=== PATIENT | male | born 1955 | race Caucasian/White ===

== ENCOUNTER 2023-05-19 15:46 | Inpatient (IN) ==
--- NOTE | 2023-05-19 15:59 | ED Triage Note ---
Date of Service May 19, 2023 History of Present Illness This patient was briefly evaluated while in triage. An abbreviated physical exam was performed. This patient is a 68-year-old Male who presents to the ED for evaluation of flank pain on right side with hx of kidney stones hx of the same seeing urology at the [facility] Physical Exam GENERAL: NAD CARDIOVASCULAR: RRR RESPIRATORY: CTA ABDOMEN: BS x 4. Nontender to palpation. Initial orders for labs and / or imaging were placed and patient was placed in the waiting area until a bed is available. Please see further documentation for the full ED course.
[2023-05-19] MEDS ORDERED: SODIUM CHLORIDE 0.9% 1,000 ML IV SCH (16:01)
[2023-05-19] MEDS ORDERED: ONDANSETRON INJ 2 MG/ML 2 ML VIAL IV STA (16:01)
[2023-05-19] MEDS ORDERED: KETOROLAC TROMETHAMINE 15 MG/ML VIAL IV ONE (16:01)
[2023-05-19 16:39] LABS: Appearance Urine Clear (Clear); Bacteria Urine Automated Negative (Negative); Blood Urine Negative (Negative); Color Urine Dark Yellow; Epithelial Cell Urine Auto >30 /lpf (0-5); Glucose Urine UA Negative (Negative); Ketones Urine Trace (Negative); Leukocyte Esterase Urine Negative (Negative); Nitrite Urine Positive (Negative); Protein Urine Trace (Negative); Urobilinogen Urine Negative (Negative); pH Urine 5.5 (4.5-7.5)
[2023-05-19 16:40] LABS: Bilirubin Urine 1+ (Negative)
[2023-05-19 16:59] LABS: Cast Urine Automated >30 /lpf (0-5)
[2023-05-19 17:16] LABS: Basophils # (auto) 0.05 K/uL (0.00-0.20); Basophils % (auto) 0.5 %; Eosinophils # (auto) 0.04 K/uL (0.00-0.50); Eosinophils % (auto) 0.4 %; Hematocrit (blood only) 43.5 % (42.0-52.0); Hemoglobin 15.4 g/dl (14.0-18.0); Immature Granulocytes # (auto) 0.03 K/uL (0.01-0.20); Immature Granulocytes % (auto) 0.3 %; Lymphocytes # (auto) 0.96 K/uL (1.20-3.40); Lymphocytes % (auto) 9.1 %; Mean Corpuscular Hemoglobin 33.2 pg (25.0-34.0); Mean Corpuscular Hgb Conc 35.4 g/dL (32.0-36.0); Mean Corpuscular Volume 93.8 fL (80.0-100.0); Mean Platelet Volume 10.6 fL (9.4-12.4); Monocytes # (auto) 0.74 K/uL (0.11-0.59); Neutrophils # (auto) 8.77 K/uL (1.40-6.50); Neutrophils % (auto) 82.7 %; Platelet Count 210 K/uL (130-400); RDW Coefficient of Variation 13.2 % (11.5-14.5); RDW Standard Deviation 45.2 fL (36.4-46.3); Red Blood Count 4.64 M/uL (4.70-6.10); White Blood Count 10.59 K/ul (4.8-10.8)
[2023-05-19 17:35] LABS: Albumin Globulin Ratio 1.7 (0.9-2); Albumin Level 4.3 gm/dl (3.4-5.0); BUN Creatinine Ratio 14.4 (10-20); Bilirubin,Total 0.7 mg/dl (0.2-1.0); Calcium 8.9 mg/dl (8.6-10.3); Creatinine Clr Calc Pharmacy 68.4 ml/min; Est GFR (African American) 73.6 ml/min; Est GFR (Non-African American) 63.5 ml/min; Globulin 2.5 gm/dl (2.5-4.0); Potassium 4.4 mmol/L (3.5-5.1); Total Protein 6.8 gm/dl (6.0-8.3)
--- NOTE | 2023-05-19 17:38 | CT Scan Report ---
CT OF THE ABDOMEN AND PELVIS WITHOUT CONTRAST CLINICAL HISTORY: right flank pain hx of stones COMPARISON STUDY: No previous studies for comparison. TECHNIQUE: Axial images of the abdomen and pelvis were obtained without IV contrast. Images were revi ewed in the axial, sagittal, and coronal planes. Automated exposure control was utilized for the janna dy. A dose lowering technique was utilized adhering to the principles of ALARA. FINDINGS: A 6 mm distal right ureteral calculus just proximal to the ureterovesical junction results in moderate right hydroureteronephrosis with moderate perinephric fluid. No additional urinary calcul i are present. Renal sinus calcifications are vascular. Prostate is enlarged, measuring 5.8 cm in tra nsverse dimension. Evaluation of the remainder of the abdomen and pelvis is suboptimal on this unenha nced exam. Hypodense hepatic lesions are unchanged. These favor cysts. There is no biliary or pancrea tic ductal dilatation. No peripancreatic or pericholecystic infiltration is present. There is no evid ence for a bowel obstruction. There is extensive aortoiliac atherosclerotic plaque. No lymphadenopath y is present. IMPRESSION: 6 mm distal right ureteral calculus which results in moderate right hydroureteronephrosi s with perinephric fluid. ACT 112: Negative or not required by law. Electronically signed by: Reji Coleman M.D. 05/19/2023 5:36 PM
[2023-05-19] MEDS ORDERED: ONDANSETRON INJ 2 MG/ML 2 ML VIAL ONE (18:31)
[2023-05-19] MEDS ORDERED: KETOROLAC TROMETHAMINE 15 MG/ML VIAL ONE (18:32)
--- NOTE | 2023-05-19 18:32 | Emergency Department Note ---
ED Provider Note History of Present Illness Chief Complaint: Kidney Stone Stated Complaint: ?KIDNEY STONE Time Seen by Provider: 05/19/23 18:27 Source: patient Mode of arrival: ambulatory Limitations: no limitations This patient is a 68-year-old male who presents to the emergency department for evaluation of right flank pain. Last night, the patient developed pain in the right flank. He states the pain started off mild but became more severe over the next few hours. He vomited 8 times overnight. He has had an increased urge to urinate. He denies any fevers. He does have a history of kidney stones in the past. He follows with the MD. Home Medications Medication Instructions Recorded Confirmed Type No Known Home Medications 05/19/23 05/19/23 History Allergies Allergy/AdvReac Type Severity Reaction Status Date / Time No Known Allergies Allergy Verified 05/19/23 16:00 Past Med/Surg History Medical History MS (multiple sclerosis) Social History Smoking Status: Current every day smoker Preferred Language: Latvian Feels Safe at Home: Yes Physical Exam Vital Signs Vital Signs - 24 hr 05/19/23 15:56 05/19/23 18:37 05/19/23 20:18 Temperature 36.8 C Temperature Source Temporal Artery Scan Pulse Rate 79 Pulse Rate [Left Finger] 62 78 Pulse Rhythm [Left Finger] Regular Pulse Strength [Left Finger] Normal Normal Respiratory Rate 20 20 18 Respiratory Effort / Characteristics Non-Labored Spontaneous Non-Labored Spontaneous Non-Labored Respiratory Depth Normal Normal Normal Respiratory Pattern Regular Regular Blood Pressure 141/71 H Blood Pressure [Right Arm] 165/78 H 163/85 H Blood Pressure Mean 94 Blood Pressure Mean [Right Arm] 107 111 Blood Pressure Position [Right Arm] Sitting Lying Pulse Oximetry 95 97 94 Oxygen Delivery Method Room Air Room Air Room Air Sepsis Recent Fever Within 48 Hours No Sepsis New/Unexplained Change in Mental Status No Sepsis Action Taken by Nursing No Action Required 05/19/23 21:26 Temperature Temperature Source Pulse Rate Pulse Rate [Left Finger] 75 Pulse Rhythm [Left Finger] Pulse Strength [Left Finger] Normal Respiratory Rate 18 Respiratory Effort / Characteristics Non-Labored Respiratory Depth Normal Respiratory Pattern Regular Blood Pressure Blood Pressure [Right Arm] 145/83 H Blood Pressure Mean Blood Pressure Mean [Right Arm] 103 Blood Pressure Position [Right Arm] Lying Pulse Oximetry 93 Oxygen Delivery Method Room Air Sepsis Recent Fever Within 48 Hours Sepsis New/Unexplained Change in Mental Status Sepsis Action Taken by Nursing VITALS: Vitals are noted on the nurse's note and reviewed by myself. GENERAL: This is a 68-year-old male, in no acute distress, well-developed well- nourished. SKIN: The skin was without rashes. HEART: Regular rate and rhythm without murmurs gallops or rubs. LUNGS: Clear to auscultation bilaterally without wheezes, rales or rhonchi. ABDOMEN: Positive bowel sounds x 4. Right CVA tenderness noted. Mild right lower quadrant abdominal tenderness NEURO: Patient was alert and oriented to person place and time. Course Administered Medications Discontinued Medications Sodium Chloride (Nss) 1,000 mls @ 999 mls/hr IV .Q1H1M THALIA Stop: 05/19/23 17:01 Last Infusion: 05/19/23 20:28 Dose: 0 mls/hr Documented By: Admin: 05/19/23 18:34 Dose: 999 mls/hr Documented By: ADELAIDA Ceftriaxone Sodium (Rocephin) 2,000 mg in 50 mls @ 100 mls/hr IV NOW STA Stop: 05/19/23 19:58 Last Infusion: 05/19/23 20:17 Dose: 0 mls/hr Documented By: Admin: 05/19/23 19:40 Dose: 100 mls/hr Documented By: AVELINA Ketorolac Tromethamine (Ketorolac Tromethamine 15 Mg/Ml Vial) 10 mg IV NOW ONE Stop: 05/19/23 16:02 Last Admin: 05/19/23 18:35 Dose: 10 mg Documented By: ADELAIDA Ketorolac Tromethamine (Ketorolac Tromethamine 15 Mg/Ml Vial) Confirm Administered Dose 15 mg .ROUTE .STK-MED ONE Stop: 05/19/23 18:33 Last Admin: 05/19/23 18:35 Dose: Not Given Documented By: ADELAIDA Morphine Sulfate (Morphine Sulfate 4 Mg/Ml 1 Ml Carp\Vial) 4 mg IV NOW STA Stop: 05/19/23 20:00 Last Admin: 05/19/23 20:17 Dose: 4 mg Documented By: AVELINA Ondansetron HCl (Ondansetron Inj 2 Mg/Ml 2 Ml Vial) 4 mg IV NOW STA Stop: 05/19/23 16:02 Last Admin: 05/19/23 18:35 Dose: 4 mg Documented By: ADELAIDA Ondansetron HCl (Ondansetron Inj 2 Mg/Ml 2 Ml Vial) Confirm Administered Dose 4 mg .ROUTE .STK-MED ONE Stop: 05/19/23 18:32 Last Admin: 05/19/23 18:35 Dose: Not Given Documented By: ADELAIDA Medical Decision Making Differential Diagnosis Differential diagnosis includes renal calculus, pyelonephritis, musculoskeletal pain, ruptured AAA, aortic dissection, diverticulitis, perforated viscus, bowel obstruction, biliary pathology, pancreatitis, PE, pneumonia, pneumothorax, trauma, herpes zoster, malignancy, among others. Home Medications was personally reviewed by me Laboratory Data Attestation: I reviewed the patient's lab results. 05/19/23 16:58 05/19/23 16:58 Lab Results 05/19/23 05/19/23 05/19/23 Range/Units 15:57 16:58 16:58 WBC 10.59 (4.8-10.8) K/ul RBC 4.64 L (4.70-6.10) M/uL Hgb 15.4 (14.0-18.0) g/dl Hct 43.5 (42.0-52.0) % MCV 93.8 (80.0-100.0) fL MCH 33.2 (25.0-34.0) pg MCHC 35.4 (32.0-36.0) g/dL RDW Std Deviation 45.2 (36.4-46.3) fL RDW Coeff of Alondra 13.2 (11.5-14.5) % Plt Count 210 (130-400) K/uL MPV 10.6 (9.4-12.4) fL Immature Gran % (Auto) 0.3 % Neut % (Auto) 82.7 % Lymph % (Auto) 9.1 % King % (Auto) 7.0 % Eos % (Auto) 0.4 % Baso % (Auto) 0.5 % Neut # (Auto) 8.77 H (1.40-6.50) K/uL Lymph # (Auto) 0.96 L (1.20-3.40) K/uL King # (Auto) 0.74 H (0.11-0.59) K/uL Eos # (Auto) 0.04 (0.00-0.50) K/uL Baso # (Auto) 0.05 (0.00-0.20) K/uL Immature Gran # (Auto) 0.03 (0.01-0.20) K/uL Sodium 135 L (136-145) mmol/L Potassium 4.4 (3.5-5.1) mmol/L Chloride 103 (98-107) mmol/L Carbon Dioxide 26 (21-32) mmol/L Anion Gap 6 (3-11) BUN 17 (6-23) mg/dl Creatinine 1.18 (0.6-1.4) mg/dl Est Cr Clr Drug Dosing 68.4 ml/min Est GFR ( Amer) 73.6 ml/min Est GFR (Non-Af Amer) 63.5 ml/min BUN/Creatinine Ratio 14.4 (10-20) Glucose 125 H (70-99(Fasting)) mg/dl Calcium 8.9 (8.6-10.3) mg/dl Total Bilirubin 0.7 (0.2-1.0) mg/dl AST 21 (13-39) U/L ALT 18 (7-52) U/L Alkaline Phosphatase 55 (34-104) U/L Total Protein 6.8 (6.0-8.3) gm/dl Albumin 4.3 (3.4-5.0) gm/dl Globulin 2.5 (2.5-4.0) gm/dl Albumin/Globulin Ratio 1.7 (0.9-2) Urine Color Dark Yellow Urine Appearance Clear (Clear) Urine pH 5.5 (4.5-7.5) Ur Specific [place] 1.030 (1.000-1.030) Urine Protein Trace H (Negative) Urine Glucose (UA) Negative (Negative) Urine Ketones Trace H (Negative) Urine Blood Negative (Negative) Urine Nitrite Positive A (Negative) Urine Bilirubin 1+ H (Negative) Urine Urobilinogen Negative (Negative) Ur Leukocyte Esterase Negative (Negative) Urine WBC (Auto) 1-5 (0-5) /hpf Urine RBC (Auto) 5-10 H (0-4) /hpf U Hyaline Cast (Auto) >30 H (0-5) /lpf U Epithel Cells (Auto) >30 H (0-5) /lpf Urine Bacteria (Auto) Negative (Negative) Imaging Data Attestation: I personally reviewed and interpreted this imaging study as follows: Radiologist's Impression: Abdomen/Pelvis CT 05/19/23 15:59 CT OF THE ABDOMEN AND PELVIS WITHOUT CONTRAST CLINICAL HISTORY: right flank pain hx of stones COMPARISON STUDY: No previous studies for comparison. TECHNIQUE: Axial images of the abdomen and pelvis were obtained without IV contrast. Images were reviewed in the axial, sagittal, and coronal planes. Automated exposure control was utilized for the study. A dose lowering technique was utilized adhering to the principles of ALARA. FINDINGS: A 6 mm distal right ureteral calculus just proximal to the ureterovesical junction results in moderate right hydroureteronephrosis with moderate perinephric fluid. No additional urinary calculi are present. Renal sinus calcifications are vascular. Prostate is enlarged, measuring 5.8 cm in transverse dimension. Evaluation of the remainder of the abdomen and pelvis is suboptimal on this unenhanced exam. Hypodense hepatic lesions are unchanged. These favor cysts. There is no biliary or pancreatic ductal dilatation. No peripancreatic or pericholecystic infiltration is present. There is no evidence for a bowel obstruction. There is extensive aortoiliac atherosclerotic plaque. N o lymphadenopathy is present. IMPRESSION: 6 mm distal right ureteral calculus which results in moderate right hydroureteronephrosis with perinephric fluid. ACT 112: Negative or not required by law. Electronically signed by: Reji Coleman M.D. 05/19/2023 5:36 PM MDM Narrative The patient is a 68-year-old male who presents today complaining of right flank pain. Labs revealed no leukocytosis or anemia. Kidney function within normal limits. CT was performed and patient was found to have a 6 mm stone in the distal right ureter. He does have hydroureteronephrosis with perinephric fluid. Urine was positive for nitrites although no bacteria. He was covered empiri lilian with Rocephin. Given findings and patient's significant symptoms at home and social situation, I think it would be best for him to stay in the hospital. Case was discussed with the hospitalist service, who agreed to evaluate the patient for further care. Impression Right distal ureteral calculus Discharge Plan Visit Data Chief Complaint: Kidney Stone Stated Complaint: ?KIDNEY STONE ED Provider: Dinah Carter ED Midlevel Provider: Coby Estrella Discharge Problem: Right distal ureteral calculus Discharge Instructions Interventions: ED Discharge Assessment Last Done: 05/19/23 21:39 Forms Stand Alone Forms: [employer] Prescriptions Prescriptions: No Action No Known Home Medications Referrals Referrals: Charlie Jiménez, DATA PROCESSING OPERATOR-C [Primary Care Provider] -
[2023-05-19] MEDS ORDERED: cefTRIAXone SODIUM 2,000 MG/50 ML BAG IV STA (19:29)
[2023-05-19] MEDS ORDERED: MoRPHine SULFATE 4 MG/ML 1 ML CARP\\VIAL IV STA (19:59)
--- NOTE | 2023-05-19 20:27 | History & Physical Report ---
Date of Service May 19, 2023 Assessment & Plan (1) Right distal ureteral calculus: (2) Hydronephrosis of right kidney: Plan 6 mm distal right ureteral stone/moderate hydroureteronephrosis/perinephric fluid- NPO NSS + KCl 20 mEq at 80 mils per hour Follow urine culture and sensitivity Ceftriaxone 2 g IV daily Acetaminophen 1 g IV every 8 hours as needed for mild pain or fever Morphine sulfate 4 mg IV every 3 hours as needed for moderate to severe pain Zofran 4 mg IV every 6 hours as needed Consult urology MS- No recent activity History of Present Illness Chief Complaint: The patient presents emergency department with complaint of severe right-sided flank pain, which worsened overnight, had vomited up to 8 times today. His last oral intake was at 630 this morning, which he promptly vomited upwards as well again. Symptoms are similar to March of last year, when he was diagnosed with a kidney stone Primary Care Provider: Charlie Jiménez, WRITING CENTER DIRECTOR-C The patient is a 68-year-old male with past medical history including MS, and right ureteral stone on 03/26/2022. He presents to the emergency department today with approximately 24 hours of progressively worsening right flank pain, and vomiting up to 8 times today. Work-up in the emergency department including CT scan of abdomen pelvis which showed a 6 mm distal right ureteral stone with moderate right hydroureteronephrosis and perinephric fluid. From the ED the patient is here following: Normal saline 1 L, Toradol 10 mg IV, Zofran 4 mg IV, ceftriaxone 2 g IV, and morphine sulfate 4 mg IV. Allergies Allergy/AdvReac Type Severity Reaction Status Date / Time No Known Allergies Allergy Verified 05/19/23 16:00 Home Medications Medication Instructions Recorded Confirmed Type No Known Home Medications 05/19/23 05/19/23 History Past Med/Surg History Medical History (Updated 05/19/23 @ 20:32 by Florentino Noriega MD) MS (multiple sclerosis) Social History Smoking Status: Current every day smoker Preferred Language: Upper Sorbian Feels Safe at Home: Yes Review of Systems Review of Systems: The patient denies chest pain, palpitations, shortness of breath, dyspnea on exertion, cough, lower extremity swelling, sore throat, fevers, chills, sweats, diarrhea , constipation, abdominal pain, pelvic pain, blood in urine or stool, dysuria, urinary frequency or urgency, lightheadedness, dizziness, headache, memory loss, loss of consciousness, rash, abnormal bruising or bleeding, imbalance, focal or generalized weakness, numbness or tingling in arms or legs, generalized arthralgias or myalgias, neck pain, or night sweats. The review of systems is otherwise negative other than for that already noted above, and at least 10 systems have been reviewed. Physical Exam Physical Exam: The patient is awake, alert and oriented 3, well developed and well nourished, normocephalic and atraumatic, lying in bed and in no acute distress. HEENT--PERRL, EOMI, mucous membranes and oropharynx mildly dry. Neck--supple. No JVD. No bruits. Thyroid normal, trachea midline, no adenopathy. Heart--normal S1 and S2. No murmurs, rubs or gallops. Lungs--clear bilaterally, no respiratory distress, no accessory muscle use. Abdomen--normal bowel sounds and soft. Nontender. Nondistended, no hernias or masses, no organomegaly. Extremities--no cyanosis or clubbing. No edema. There are good distal pulses b/l. Dermatologic--normal skin turgor, normal color, no abnormal lymph nodes, no rash. Neurologic--cranial nerves II through XII grossly intact. Rheumatologic--normal range of motion. Psychiatric--normal affect. Results & Data Results & Data Vital Signs (Past 12 Hours) Vital Signs Temp Pulse Pulse Resp BP BP Pulse Ox 05/19/23 20:18 78 18 163/85 H 94 05/19/23 18:37 62 20 165/78 H 97 05/19/23 15:56 36.8 C 79 20 141/71 H 95 O2 Del Method 05/19/23 20:18 Room Air 05/19/23 18:37 Room Air 05/19/23 15:56 Room Air Laboratory Results Laboratory Results WBC 10.59 K/ul (4.8-10.8) 05/19/23 16:58 RBC 4.64 M/uL (4.70-6.10) L 05/19/23 16:58 Hgb 15.4 g/dl (14.0-18.0) 05/19/23 16:58 Hct 43.5 % (42.0-52.0) 05/19/23 16:58 MCV 93.8 fL (80.0-100.0) 05/19/23 16:58 MCH 33.2 pg (25.0-34.0) 05/19/23 16:58 MCHC 35.4 g/dL (32.0-36.0) 05/19/23 16:58 RDW Std Deviation 45.2 fL (36.4-46.3) 05/19/23 16:58 RDW Coeff of Alondra 13.2 % (11.5-14.5) 05/19/23 16:58 Plt Count 210 K/uL (130-400) 05/19/23 16:58 MPV 10.6 fL (9.4-12.4) 05/19/23 16:58 Immature Gran % (Auto) 0.3 % 05/19/23 16:58 Neut % (Auto) 82.7 % 05/19/23 16:58 Lymph % (Auto) 9.1 % 05/19/23 16:58 Garza % (Auto) 7.0 % 05/19/23 16:58 Eos % (Auto) 0.4 % 05/19/23 16:58 Baso % (Auto) 0.5 % 05/19/23 16:58 Neut # (Auto) 8.77 K/uL (1.40-6.50) H 05/19/23 16:58 Lymph # (Auto) 0.96 K/uL (1.20-3.40) L 05/19/23 16:58 Garza # (Auto) 0.74 K/uL (0.11-0.59) H 05/19/23 16:58 Eos # (Auto) 0.04 K/uL (0.00-0.50) 05/19/23 16:58 Baso # (Auto) 0.05 K/uL (0.00-0.20) 05/19/23 16:58 Immature Gran # (Auto) 0.03 K/uL (0.01-0.20) 05/19/23 16:58 Sodium 135 mmol/L (136-145) L 05/19/23 16:58 Potassium 4.4 mmol/L (3.5-5.1) 05/19/23 16:58 Chloride 103 mmol/L (98-107) 05/19/23 16:58 Carbon Dioxide 26 mmol/L (21-32) 05/19/23 16:58 Anion Gap 6 (3-11) 05/19/23 16:58 BUN 17 mg/dl (6-23) 05/19/23 16:58 Creatinine 1.18 mg/dl (0.6-1.4) 05/19/23 16:58 Est Cr Clr Drug Dosing 68.4 ml/min 05/19/23 16:58 Est GFR ( Amer) 73.6 ml/min 05/19/23 16:58 Est GFR (Non-Af Amer) 63.5 ml/min 05/19/23 16:58 BUN/Creatinine Ratio 14.4 (10-20) 05/19/23 16:58 Glucose 125 mg/dl (70-99(Fasting)) H 05/19/23 16:58 Calcium 8.9 mg/dl (8.6-10.3) 05/19/23 16:58 Total Bilirubin 0.7 mg/dl (0.2-1.0) 05/19/23 16:58 AST 21 U/L (13-39) 05/19/23 16:58 ALT 18 U/L (7-52) 05/19/23 16:58 Alkaline Phosphatase 55 U/L (34-104) 05/19/23 16:58 Total Protein 6.8 gm/dl (6.0-8.3) 05/19/23 16:58 Albumin 4.3 gm/dl (3.4-5.0) 05/19/23 16:58 Globulin 2.5 gm/dl (2.5-4.0) 05/19/23 16:58 Albumin/Globulin Ratio 1.7 (0.9-2) 05/19/23 16:58 Urine Color Dark Yellow 05/19/23 15:57 Urine Appearance Clear (Clear) 05/19/23 15:57 Urine pH 5.5 (4.5-7.5) 05/19/23 15:57 Ur Specific [place] 1.030 (1.000-1.030) 05/19/23 15:57 Urine Protein Trace (Negative) H 05/19/23 15:57 Urine Glucose (UA) Negative (Negative) 05/19/23 15:57 Urine Ketones Trace (Negative) H 05/19/23 15:57 Urine Blood Negative (Negative) 05/19/23 15:57 Urine Nitrite Positive (Negative) A 05/19/23 15:57 Urine Bilirubin 1+ (Negative) H 05/19/23 15:57 Urine Urobilinogen Negative (Negative) 05/19/23 15:57 Ur Leukocyte Esterase Negative (Negative) 05/19/23 15:57 Urine WBC (Auto) 1-5 /hpf (0-5) 05/19/23 15:57 Urine RBC (Auto) 5-10 /hpf (0-4) H 05/19/23 15:57 U Hyaline Cast (Auto) >30 /lpf (0-5) H 05/19/23 15:57 U Epithel Cells (Auto) >30 /lpf (0-5) H 05/19/23 15:57 Urine Bacteria (Auto) Negative (Negative) 05/19/23 15:57 Impressions Abdomen/Pelvis CT 05/19/23 15:59 CT OF THE ABDOMEN AND PELVIS WITHOUT CONTRAST CLINICAL HISTORY: right flank pain hx of stones COMPARISON STUDY: No previous studies for comparison. TECHNIQUE: Axial images of the abdomen and pelvis were obtained without IV contrast. Images were reviewed in the axial, sagittal, and coronal planes. Automated exposure control was utilized for the study. A dose lowering technique was utilized adhering to the principles of ALARA. FINDINGS: A 6 mm distal right ureteral calculus just proximal to the ureterovesical junction results in moderate right hydroureteronephrosis with moderate perinephric fluid. No additional urinary calculi are present. Renal sinus calcifications are vascular. Prostate is enlarged, measuring 5.8 cm in transverse dimension. Evaluation of the remainder of the abdomen and pelvis is suboptimal on this unenhanced exam. Hypodense hepatic lesions are unchanged. These favor cysts. There is no biliary or pancreatic ductal dilatation. No peripancreatic or pericholecystic infiltration is present. There is no evidence for a bowel obstruction. There is extensive aortoiliac atherosclerotic plaque. No lymphadenopathy is present. IMPRESSION: 6 mm distal right ureteral calculus which results in moderate right hydroureteronephrosis with perinephric fluid. ACT 112: Negative or not required by law. Electronically signed by: Reji Coleman M.D. 05/19/2023 5:36 PM Code Status & VTE Plan Code Status Full code VTE Prophylaxis Plan VTE Prophylaxis will be ordered: Yes PG Care Time/CCT Total # of Minutes Spent Total Time Spent with Patient: Total time spent is greater than 50% in coordination of care (as documented) at patient's floor/unit and/or counseling patient: Coding Level of Care Code 35546 INT INP/OBS CARE 2/55MIN Diagnoses Right distal ureteral calculus N20.1 Hydronephrosis of right kidney N13.30
--- NOTE | 2023-05-19 21:15 | Urology Consultation ---
Date of Consultation May 19, 2023 Assessment & Plan (1) Right distal ureteral calculus: The patient has been admitted on the hospitalist service. From a urologic standpoint we recommend proceeding as follows: Provide analgesics Provide antiemetics Serial labs to be followed Antibiotics in the form of Rocephin have been administered in the emergency department. The I have ordered a urine culture. Antibiotics to be tailored based on the results of this specimen once results are available. Would recommend initiating Flomax for expulsive therapy At the present time the patient is normotensive without tachycardia or fever. He also does not exhibit leukocytosis or acute kidney injury. I therefore feel a trial of conservative passage is warranted without the need for emergent urologic procedure at this time. I would recommend making the patient n.p.o. after midnight tonight and he will be reevaluated in the morning and determine if cystoscopic intervention is needed on a more elective basis at that time. Additional recommendations be forthcoming based on his clinical course as unfolds History of Present Illness Reason for Consultation: Nephrolithiasis History of Present Illness This is a 68-year-old male who presented the emergency department secondary to right-sided flank pain. The patient notes that he was feeling fine in his usual state of health until approximately 11:30 PM on 05/18/2023 when he developed right-sided flank pain with radiation to the front of his abdomen. He did have associated nausea and vomiting. He denied any modifying factors to his pain. He specifically denies any fevers, shakes, or chills. He denies any dysuria or hematuria. Patient notes that he has known that he has had a right-sided kidney stone but has not been giving him problems. He notes that he has never sought urologic evaluation for his kidney stones. He notes he has never had any prior kidney stones requiring any cystoscopic or surgical intervention. Patient's records were reviewed and he did have a CT scan from 03/26/2022 which demonstrated a 4 mm proximal right ureteral kidney stone resulting in mild to moderate hydronephrosis. There is some associated perinephric and periureteral stranding on this study. Since arrival to the hospital the patient has had labs and imaging which I independently reviewed. CT scan of the abdomen pelvis showed the patient had a 6 mm distal right ureteral kidney stone which resulted in moderate hydronephrosis and some perinephric fluid Labs include a CBC her white blood cell count was normal. Hemoglobin, hematocrit, and platelet count were all normal as well. Chemistry profile showed sodium was 135. Potassium along with the BUN and creatinine were normal. A urinalysis was performed which was positive for nitrites. There is no leukocyte Estrace on the study and there were only 1-5 white blood cells per high-power field. There is no bacteria noted on the study. At the time my interview the patient was resting comfortably in bed and he was in no distress. Allergies Allergy/AdvReac Type Severity Reaction Status Date / Time No Known Allergies Allergy Verified 05/19/23 16:00 Home Medications Medication Instructions Recorded Confirmed Type No Known Home Medications 05/19/23 05/19/23 History Patient History Medical History MS (multiple sclerosis) Social History Smoking Status: Current every day smoker Preferred Language: [place] Feels Safe at Home: Yes Review of Systems Constitutional: no fever and no chills Eyes: + corrective lenses Patient notes that he is legally blind in his left eye Ear, Nose, Mouth, Throat: no ear pain Respiratory: no cough and no dyspnea Cardiovascular: no chest pain Gastrointestinal: + abdominal pain (Radiating from right flank), + nausea and + vomiting Genitourinary: + as per Subjective / HPI Musculoskeletal: + back pain (Right flank) Integumentary: no rash Neurologic: no localized weakness Physical Exam Constitutional: WD/WN, vitals as above Eyes: Wears glasses ENMT: Ears: no hearing impairment and no external ear abnormality Mouth: no oropharynx abnormality Neck: trachea midline Respiratory: normal respiratory effort; no respiratory distress and no labored breathing Cardiovascular: Rate/Rhythm: regular rate and regular rhythm Vessels: posterior tibial pulses present and radial pulses present Gastrointestinal (Abdomen): Abdomen is soft, nondistended, nonrigid. There is no pain with palpation. There is no rebound tenderness or guarding. Musculoskeletal: No calf tenderness Skin: no rashes Neurologic: moves all extremities Genitourinary: There is no CVA tenderness to percussion on the left. There is only slight CVA tenderness with percussion on the right Results & Data Vital Signs (Past 12 Hours) Vital Signs Temp Pulse Pulse Resp BP BP Pulse Ox 05/19/23 20:18 78 18 163/85 H 94 05/19/23 18:37 62 20 165/78 H 97 05/19/23 15:56 36.8 C 79 20 141/71 H 95 O2 Del Method 05/19/23 20:18 Room Air 05/19/23 18:37 Room Air 05/19/23 15:56 Room Air PG Care Time/CCT Total # of Minutes Spent Total Time Spent with Patient: Total time spent is greater than 50% in coordination of care (as documented) at patient's floor/unit and/or counseling patient: Coding Level of Care Code 77030 INT INP/OBS CARE 3/75MIN Diagnoses Right distal ureteral calculus N20.1
[2023-05-19] MEDS ORDERED: TAMSULOSIN HCL 0.4 MG CAP PO ONE (21:54)
[2023-05-19] MEDS ORDERED: MoRPHine SULFATE 4 MG/ML 1 ML CARP\\VIAL IV PRN (21:58)
[2023-05-19] MEDS ORDERED: ACETAMINOPHEN 1000 MG/100 ML IV IV PRN (21:58)
[2023-05-19] MEDS ORDERED: ONDANSETRON INJ 2 MG/ML 2 ML VIAL IV PRN (21:58)
[2023-05-19] MEDS ORDERED: NSS + 20MEQ KCL 20 MEQ/1,000 ML BAG IV SCH (22:15)
[2023-05-19] MEDS ORDERED: Nursing to Pharmacy Communication SCH (23:00)
[2023-05-20] MEDS ORDERED: cefTRIAXone SODIUM 2,000 MG in DEXTROSE 5 % MINI-B 50 ML IV SCH (08:00)
[2023-05-20 08:52] LABS: Albumin Level 3.5 gm/dl (3.4-5.0); BUN Creatinine Ratio 13.7 (10-20); Creatinine Clr Calc Pharmacy 77.9 ml/min; Est GFR (African American) 95.6 ml/min; Est GFR (Non-African American) 82.5 ml/min; Magnesium 1.8 mg/dl (1.7-2.4); Phosphorus 2.6 mg/dl (2.5-4.9); Potassium 3.9 mmol/L (3.5-5.1)
[2023-05-20 08:58] LABS: Basophils # (auto) 0.05 K/uL (0.00-0.20); Basophils % (auto) 0.7 %; Eosinophils # (auto) 0.21 K/uL (0.00-0.50); Eosinophils % (auto) 2.9 %; Hematocrit (blood only) 38.3 % (42.0-52.0); Hemoglobin 13.4 g/dl (14.0-18.0); Immature Granulocytes # (auto) 0.02 K/uL (0.01-0.20); Immature Granulocytes % (auto) 0.3 %; Lymphocytes # (auto) 1.66 K/uL (1.20-3.40); Lymphocytes % (auto) 23.2 %; Mean Corpuscular Volume 94.3 fL (80.0-100.0); Mean Platelet Volume 11.5 fL (9.4-12.4); Monocytes # (auto) 0.63 K/uL (0.11-0.59); Monocytes % (auto) 8.8 %; Neutrophils # (auto) 4.59 K/uL (1.40-6.50); Neutrophils % (auto) 64.1 %; Platelet Count 195 K/uL (130-400); Platelet Estimate Normal (Normal); RDW Coefficient of Variation 13.2 % (11.5-14.5); Red Blood Count 4.06 M/uL (4.70-6.10); White Blood Count 7.16 K/ul (4.8-10.8)
--- NOTE | 2023-05-20 09:06 | Urology Progress Note ---
Date of Service May 20, 2023 Assessment & Plan (1) Right distal ureteral calculus: (2) Hydronephrosis of right kidney: Plan: Follow-up of right distal ureteral calculus Afebrile and hemodynamically stable Today's labscreatinine 0.95, WBC 7.16 UA on arrival was positive for nitrates; negative for leukocyte esterase, negative for bacteria Urine culture is pending - currently on IV ceftriaxone Recommend continue antibiotics and follow culture Subjectively doing well, denies flank pain or urinary signs/symptoms Discussed options for stone management including observation versus right ureteral stent placement while inpatient. Discussed need for stone surgery at a later date due to concern of possible infection. Discussed outpatient surgical options including ESWL or ureteroscopy, laser lithotripsy and stent placement. Ureteral stents were discussed in detail. After discussion, he wishes to follow-up outpatient to discuss surgical options. Reasonable given he is without pain and remains afebrile with normal creatinine and no leukocytosis. Recommend continue with antibiotics and supportive care Can transition to course of PO antibiotics upon discharge Will arrange outpatient follow-up with our service Admission and Anticipated Discharge Date Admission Date: May 19, 2023 Supervising Physician Co-Signing Physician Notes Discussed patient with JIMI. Agree with plan. Recommended stent given UA however patient preferred trial of passage. Reasonable as long as he understands risk of infection. Subjective Patient seen and examined at bedside, chart reviewed No acute issues overnight Denies flank pain Voiding without difficulty, no dysuria or hematuria No nausea or vomiting No fever or chills Denies prior surgical intervention for stones Review of Systems Constitutional: as per Subjective / HPI Gastrointestinal: as per Subjective / HPI Genitourinary: + as per Subjective / HPI Physical Exam Physical Exam: General: no acute distress HEENT: Normocephalic Pulmonary: Nonlabored respirations Abdomen: Nondistended Extremities: Moves all 4 spontaneously Neuro: No gross deficits Psych: alert and oriented, normal mood Skin: Warm, dry, no rashes noted : No CVA tenderness Results & Data Vital Signs (Past 12 Hours) Vital Signs Temp Pulse Pulse Resp BP BP Pulse Ox 05/20/23 07:25 95 05/20/23 07:11 36.9 C 85 16 142/75 H 91 05/19/23 22:30 36.6 C 70 16 150/70 H 99 05/19/23 21:26 75 18 145/83 H 93 O2 Del Method 10/11/23 07:25 Room Air 05/20/23 07:11 Room Air 05/19/23 22:30 Room Air 05/19/23 21:26 Room Air PG Care Time/CCT Total # of Minutes Spent Total Time Spent with Patient: Total time spent is greater than 50% in coordination of care (as documented) at patient's floor/unit and/or counseling patient: Coding Level of Care Code 97822 SUB INP/OBS CARE 2/35MIN Diagnoses Right distal ureteral calculus N20.1 Hydronephrosis of right kidney N13.30
--- NOTE | 2023-05-20 19:27 | Discharge Summary ---
Date of Service May 20, 2023 Admission HPI Per Admitting Provider The patient is a 68-year-old male with past medical history including MS, and right ureteral stone on 03/26/2022. He presents to the emergency department today with approximately 24 hours of progressively worsening right flank pain, and vomiting up to 8 times today. Work-up in the emergency department including CT scan of abdomen pelvis which showed a 6 mm distal right ureteral stone with moderate right hydrourete ronephrosis and perinephric fluid. From the ED the patient is here following: Normal saline 1 L, Toradol 10 mg IV, Zofran 4 mg IV, ceftriaxone 2 g IV, and morphine sulfate 4 mg IV. Principal Diagnosis ureteral stone Discharge Exam In general he is awake and alert pleasant no distress. HEENT normocephalic atraumatic mucous membranes moist. Breathing unlabored no accessory muscle use good effort. Skin shows no rashes no pallor or icterus. Neuro without focal deficits. Discharge Data Allergies Allergy/AdvReac Type Severity Reaction Status Date / Time No Known Allergies Allergy Verified 05/19/23 16:00 Consultations 05/19/23 20:27 ED Decision to Admit Stat 05/19/23 21:58 Consult Urology Routine Ordered Studies 05/19/23 15:59 CT stones [CT abd pelvis wo con] Stat Hospital Course (1) Right distal ureteral calculus: Expectant management. Flomax, pain control, nausea control, cefdinir, outpatient urology follow-up. Red flags of intractable pain, intractable nausea or fever discussed with patient. Safe/stable for home Total Time Total Time Spent Total Time Spent (In Minutes): <30 Discharge Plan Discharge Items Patient Disposition: Home - Self-Care Reason For Visit: DISTAL R URETERAL STONE, MODERATE R HYDRO Discharge Diagnosis: kidney stone Activity: Resume your previous activity Non-emergency contact: Primary Care Provider and Urologist Call non-emergency contact if: you have any medication questions, your symptoms worsen, your pain is not controlled and you have a fever Follow-up/Referrals: Mac Lane DO [Physician] - 05/26/23 8:30 am Charlie Jiménez NP-C [Primary Care Provider] - Diet: Regular Addtl Attending Provider Instructions: Kidney stone - fortunately you are feeling much better, and the stone is just small enough there is a decent chance it could pass on its owntherefore you were preferred plan of trying to pass it on its own and going home is quite reasonable - stay well-hydratedtry to make sure you drink a good 70-80 ounces of fluid a day - we have you on Flomax (tamsulosin)this is a medicine that helps relax the muscles in your urinary tract, hopefully making it easier to pass the stone. It can make you feel a little bit weak or lightheadedespecially when standing. While this side effect is not common, given that it is a new medicine to you, I would definitely have you watch how you feel when you stand up, at least at first. As soon as it is clear that the stone has passed, you will be able to stop this medicine - I have sent a prescription for Percocet that you can take up to every 4 hours as needed for pain (caution drowsiness and constipation)if your pain is not controlled on the Percocet, that would be a reason to come back to the hospital - I have also sent a prescription for Zofran (ondansetron) that you can take up to every 6 hours as needed for nauseaif you are not able to eat (or even more importantly if you are not able to drink enough fluid)i.e. if you have nausea that the Zofran will not control, that is a very strong reason to come back to the hospital - while it is not abundantly clear that there is an infection, often when people are passing kidney stones there is a risk for infectionand to that end we have you on an antibiotic (cefdinir)take this twice a dayand because a bad infection while passing a kidney stone truly can constitute an emergency, if you were to spike a fever (temp over 101)that would be a come back to the hospital GEETHA reason. Follow-up with [facility] urology in the office next week, sooner if needed Pending Studies at Discharge: No Stand-Alone Forms: My [facility] Yolto, Smoking Cessation Medications and DC Order Prescriptions: New tamsulosin 0.4 mg Capsule 0.4 mg PO HS Qty: 14 0RF cefdinir 300 mg capsule 300 mg PO BID 6 Days Qty: 12 0RF oxycodone-acetaminophen [Percocet] 5-325 mg tablet 1 tab PO Q4H PRN (Reason: pain) Qty: 15 0RF ondansetron 4 mg tablet,disintegrating 4 mg PO Q6H PRN (Reason: nausea and vomiting) Qty: 20 0RF Discharge Orders: Discharge Order (Routine); Ordered 05/20/23 Ordered By: Rajiv Reese Admission Data Admit Date/Time: 05/19/23 20:27 Attending Provider: Rajiv Reese Admit Provider: Florentino Noriega Primary Care Provider: Charlie Jiménez Other Providers: Florentino Noriega ; Rey Jones ; [facility] Other Interventions: Discharge Summary Assessment (RN) Last Done: 05/20/23 10:51 Coding Level of Care Code 10197 IN/OBS DISCH 30 MIN/LESS Diagnoses Right distal ureteral calculus N20.1
[2023-05-20] MEDS ORDERED: TAMSULOSIN HCL 0.4 MG CAP PO SCH (21:00)
== END 2023-05-20 14:15 | disposition home or self-care (01) | DRG 694 ==
LOC: ED 15:46 → SUATTDRO 20:27 → 3N 20:27